=== PATIENT | male | born 1965 | race Caucasian/White ===

== ENCOUNTER 2016-10-05 14:02 | Emergency (ER) | payer MEDICARE ==
[~2016-10-05] VITALS: Ht 180.3 cm; Wt 85.0 kg
[~2016-10-05 14:02] MED LIST: LISI-586 PO; PREG100; TRAZ100 PO; VENL100T PO; XANA1TAB6 PO
[2016-10-05 14:04] VITALS: BP 160/88; PULSE 122; RESP 20; TEMP 98.6; O2SAT 99
[2016-10-05] MEDS ORDERED: SODIUM CHLOR 0.9% 1000 ML INJ 1,000 ML IV ONE (14:30)
[2016-10-05] MEDS ORDERED: HYDROmorphone HCL PF 1 MG/ML VIAL IV PUSH ONE (14:30)
[2016-10-05] MEDS ORDERED: ONDANSETRON HCL 4 MG/2 ML VIAL IV PUSH ONE (14:30)
--- NOTE | 2016-10-05 14:43 | PD ---
HPI Chief Complaint: Injury Time Seen by Provider: 14:30 Travel History International Travel<30 days: No Contact w/Intl Traveler<30days: No Traveled to known affect area: No History of Present Illness HPI The patient is a 51-year-old male who presents to the emergency department via EMS for right shoulder pain. The patient states he fell against a wall last night and injured his right shoulder. The patient thought it was simply bruised him at the bed, however, when he awakened this morning he was unable to raise his right arm. Patient states she has difficulty moving the right upper extremity secondary to pain located over the mid to proximal right humerus as well as bruising over the affected area. He also states the pain radiates up to the right clavicle. He denies any head injury, acute headache, neck pain, chest pain, shortness breath, or abdominal pain. The patient's pain is moderate, worse with movement, slightly alleviated at rest. The patient received 10 mg of morphine by EMS prior to arrival, however, continues to complain of right arm pain. He denies any numbness or tingling of the right upper extremity. PFSH Past Medical History Anemia: Yes Anxiety: Yes Depression: Yes Diminished Hearing: No Hypertension: Yes Seizures: Yes Tetanus Vaccination: Unknown Past Surgical History Genitourinary Surgery: Yes (LT KIDNEY CA REMOVED) Other Surgery: Yes (FACIAL ABCESS) Social History Alcohol Use: Yes (6 PACK PER DAY (DENIES)) Tobacco Use: Yes (1 PPD) Substance Use: No Allergies-Medications (Allergen,Severity, Reaction): Coded Allergies: No Known Allergies (Unverified , 10/05/16) Reported Meds & Prescriptions Reported Meds & Active Scripts Active No Active Prescriptions or Reported Medications Review of Systems Except as stated in HPI: all other systems reviewed are Neg General / Constitutional: No: Fever Cardiovascular: No: Chest Pain or Discomfort Respiratory: No: Shortness of Breath Gastrointestinal: Positive: Other (history of chronic left flank pain after removal of renal cell carcinoma with subsequent hernia), No: Nausea, Vomiting Musculoskeletal: Positive: Limited ROM, Edema, Pain Neurologic: No: Paresthesia, Sensory Disturbance Physical Exam Narrative GENERAL: Awake, alert, pleasant 51-year-old male who appears his stated age and is in no acute respiratory distress. SKIN: Warm and dry. HEAD: Atraumatic. Normocephalic. EYES: No injection or drainage. ENT: No nasal bleeding or discharge. Mucous membranes pink and moist. NECK: Trachea midline. No JVD. CARDIOVASCULAR: Regular rate and rhythm. No murmur appreciated. RESPIRATORY: No accessory muscle use. Clear to auscultation. Breath sounds equal bilaterally. MUSCULOSKELETAL: Tenderness over the mid to proximal right humerus with apparent deformity. Ecchymosis noted over the medial aspect of the right biceps. Patient is unable to abduct or extend at the right shoulder. He is unable to extend at the right elbow secondary to pain. He is able flex and extend the right wrist. Positive right radial pulse. No tenderness of the right clavicle. NEUROLOGICAL: Awake and alert. No obvious cranial nerve deficits. Motor grossly within normal limits. Normal speech. PSYCHIATRIC: Appropriate mood and affect; insight and judgment normal. Data Data Last Documented VS Vital Signs Date Time Temp Pulse Resp B/P Pulse Ox O2 Delivery O2 Flow Rate FiO2 10/05/16 15:41 99 16 182/94 95 Room Air 10/05/16 14:04 98.6 Orders Humerus (Min 2vws) (10/05/16 ) Sodium Chlor 0.9% 1000 Ml Inj (Ns 1000 M (10/05/16 14:30) Hydromorphone Pf Inj (Dilaudid Pf Inj) (10/05/16 14:30) Ondansetron Inj (Zofran Inj) (10/05/16 14:30) Propofol 200 Mg/20 Ml Inj (Diprivan 200 (10/05/16 16:00) Shoulder, One View (10/05/16 ) Sling And Swathe (10/05/16 ) MDM Medical Decision Making Medical Screen Exam Complete: Yes Emergency Medical Condition: Yes Medical Record Reviewed: Yes Interpretation(s) X-ray of the humerus reveals an anterior/inferior dislocation of the shoulder with the humerus Below the glenoid with a large triangular shaped fracture of the humeral head. Postreduction x-ray reveals reduction of the dislocation. Differential Diagnosis Differential diagnosis includes fracture, dislocation, fracture with dislocation , contusion, hematoma, neurovascular injury. Narrative Course IV was established, the patient was administered Dilaudid 1 mg intravenously with Zofran 4 mg intravenously and normal saline. X-ray of the right humerus was obtained. X-ray the right humerus reveals a dislocation and fracture of the humeral head. I discussed the patient with the on-call orthopedist, Dr. Raman, who reviewed the patient's films. He requests reduction of the shoulder dislocation of possible, swelling, and outpatient follow-up. Discussion with the patient at bedside regarding the risk and benefits of conscious sedation. The patient is agreeable to conscious sedation. Therefore , nursing staff, respiratory therapist, and the heat treat technician were present at bedside. The patient was placed on end-tidal CO2 and administer propofol with IV fluids. The right shoulder was then reduced and postreduction x-ray was obtained. The patient was neurovascularly intact after reduction. The patient be discharged home with a sling and follow-up with orthopedics. Procedures Procedure Narrative After the risks and benefits were discussed the following procedure was performed: MODERATE SEDATION: The patient was placed on a carbonation tester and pulse oximetry. An ambu bag and suction was immediately available at bedside. The patient was monitored by the nurse. Oxygen saturation, heart rate and blood pressure were monitored. Procedural sedation was acheived using 300 mg of propofol. The patient was observed until awake and alert. Procedural Sedation time in attendance was 30 minutes. The right shoulder was reduced after adequate sedation with extension and external rotation. The patient had positive pulses after reduction. The patient was placed in a sling and postreduction films revealed proper reduction. The patient is neurovascularly intact. Patient tolerated the procedure without difficulty and there was no obvious complications. Diagnosis Primary Impression: Closed fracture dislocation of right shoulder joint Qualified Code: S42.91XA - Closed fracture dislocation of right shoulder joint , initial encounter Referrals: Alejandro Raman Jr., MD call for appointment Patient Instructions: General Instructions Additional Instructions: Sling as directed. Follow-up with orthopedics. Pain medication as directed. Return if symptoms worsen or progress. Med/Other Pt SpecificInfo: Prescription(s) given Scripts Ibuprofen 600 Mg Mlb362 Mg PO Q6H PRN (Pain/Inflammation) #20 TAB Ref 0 Prov:Jerrell Blandon MD 10/05/16 Hydrocodone-Acetaminophen (Vincent)5-325 mg Tab1 Tab PO Q6H PRN (PAIN) #20 TAB Ref 0 Prov:Jerrell Blandon MD 10/05/16 Disposition: DISCHARGE HOME Condition: Stable Jerrell Blandon MD Oct 05, 2016 14:43
--- NOTE | 2016-10-05 15:33 | RADRPT ---
EXAM DATE/TIME: 10/05/2016 15:20 [facility] COMPARISON: No previous studies available for comparison. INDICATIONS : Fall. Right proximal humerus pain and deformity. MEDICAL HISTORY : None. SURGICAL HISTORY : None. ENCOUNTER: Initial ACUITY: 1 day PAIN SCORE: 10/10 LOCATION: Right proximal humerus FINDINGS: There is an anterior/inferior dislocation of the shoulder with the humerus trapped below the glenoid with a large triangular shaped fracture of the humeral head. CONCLUSION: Fracture dislocation as described above. Humeral head is trapped beneath the glenoid . Ion Clement MD FACR on October 05, 2016 at 15:30 Board Certified Radiologist. This report was verified electronically.
[2016-10-05 15:41] VITALS: BP 182/94; PULSE 99; RESP 16; O2SAT 95
[2016-10-05] MEDS ORDERED: PROPOFOL 200 MG/20 ML AMP IV ONE (16:00)
[2016-10-05] MEDS ORDERED: IBUP-232 PO (16:57)
[2016-10-05] MEDS ORDERED: NORC5TAB PO (16:57)
[2016-10-05 18:00] VITALS: O2SAT 100
--- NOTE | 2016-10-06 09:29 | RADRPT ---
EXAM DATE/TIME: 10/05/2016 16:53 [facility] COMPARISON: HUMERUS RIGHT (MIN 2VWS), October 05, 2016, 15:20. INDICATIONS: Post reduction right shoulder. MEDICAL HISTORY: None. SURGICAL HISTORY: None. ENCOUNTER: Initial ACUITY: 1 day PAIN SCORE: 4/10 LOCATION: Right shoulder FINDINGS: Two view of the right shoulder demonstrates the glenohumeral joint is now reduced. I suspect there i s still a greater tuberosity fracture. On one view there is even a small questionable [place] fractu re. Acromioclavicular joint is unremarkable and scapula is unremarkable. CONCLUSION: The glenohumeral joint is now reduced with questionable fracture involving the greater tuberosity and the anterior inferior glenoid. Cameron Silva MD on October 05, 2016 at 17:16 Board Certified Radiologist. This report was verified electronically.
== END 2016-10-05 18:07 | disposition home or self-care (01) ==
LOC: NEPE 14:02
DX: S42.201A Unspecified fracture of upper end of right humerus, initial encounter for closed fracture (principal); S43.004A Unspecified dislocation of right shoulder joint, initial encounter; W19.XXXA Unspecified fall, initial encounter
CPT/HCPCS: 23665; 73020; 73060; 96361; 96374; 96375; 99152; 99153; 99283; J1170; J2405; J7030

== ENCOUNTER 2016-10-11 02:49 | Emergency (ER) | payer OTHER, MEDICARE ==
[~2016-10-11] VITALS: Ht 180.3 cm; Wt 89.9 kg
[~2016-10-11 02:49] MED LIST changes: +IBUP-232 PO; -LISI-586 PO; +NORC5TAB PO; -PREG100; -TRAZ100 PO; -VENL100T PO; -XANA1TAB6 PO
[2016-10-11 03:05] VITALS: BP 128/87; PULSE 87; RESP 16; TEMP 98.5; O2SAT 98
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
[2016-10-11 05:05] VITALS: BP 142/78; PULSE 74; RESP 16; O2SAT 100
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
== END 2016-10-11 05:25 | disposition home or self-care (01) ==
LOC: PHED 02:49
DX: S42.201A Unspecified fracture of upper end of right humerus, initial encounter for closed fracture (principal); I10 Essential (primary) hypertension; V09.9XXA Pedestrian injured in unspecified transport accident, initial encounter; Y92.511 Restaurant or cafe as the place of occurrence of the external cause; F17.210 Nicotine dependence, cigarettes, uncomplicated
CPT/HCPCS: 73030; 99283

== ENCOUNTER 2016-10-15 10:42 | Emergency (ER) | payer MEDICARE, OTHER ==
[~2016-10-15] VITALS: Ht 180.3 cm; Wt 90.0 kg
[2016-10-15 10:46] VITALS: BP 136/83; PULSE 88; RESP 16; TEMP 98.1; O2SAT 94
--- NOTE | 2016-10-15 11:04 | PD ---
HPI Chief Complaint: Injury Time Seen by Provider: 10:55 Travel History International Travel<30 days: No Contact w/Intl Traveler<30days: No Traveled to known affect area: No History of Present Illness HPI Physical 51-year-old male presents for evaluation of right shoulder pain. Review of records shows the patient was seen in October 05 of this year for fracture dislocation of his proximal humerus. Patient was reduced in the emergency department place in sling and instructed to follow-up with orthopedic surgery. Patient has not been wearing his sling and has not followed up with orthopedic surgery since then. He is also return to the emergency department once for increasing pain. Today he was placed under arrest and was handcuffed at which point he started having shoulder pain stating he was in severe pain. On arrival to the emergency department he appears well in no apparent distress. He is under arrest and escorted by lawyer. His only complaint is right shoulder pain. According the officer there was no takedown he was surrendered and handcuffed without significant trauma to his person. Patient allegedly under arrest for resisting arrest. [facility] Past Medical History Anemia: Yes Anxiety: Yes Depression: Yes Diminished Hearing: No Hypertension: Yes Seizures: Yes Past Surgical History Genitourinary Surgery: Yes (LT KIDNEY CA REMOVED) Other Surgery: Yes (FACIAL ABCESS) Social History Alcohol Use: Yes (DAILY) Tobacco Use: Yes (1 PPD) Substance Use: No Allergies-Medications (Allergen,Severity, Reaction): Coded Allergies: No Known Allergies (Unverified , 10/15/16) Reported Meds & Prescriptions Reported Meds & Active Scripts Active No Active Prescriptions or Reported Medications Review of Systems Except as stated in HPI: all other systems reviewed are Neg Physical Exam Narrative GENERAL: Well-nourished, well-developed patient. Smells of alcohol. SKIN: Warm and dry. HEAD: Normocephalic. EYES: No scleral icterus. No injection or drainage. NECK: Supple, trachea midline. No JVD or lymphadenopathy. CARDIOVASCULAR: Regular rate and rhythm without murmurs, gallops, or rubs. RESPIRATORY: Breath sounds equal bilaterally. No accessory muscle use. GASTROINTESTINAL: Abdomen soft, non-tender, nondistended. MUSCULOSKELETAL: No cyanosis, or edema. Right upper extremity: There is some swelling and bruising about the right shoulder over the proximal humerus. There is some ecchymosis which is started to spread inferiorly. There is no tenderness in the elbow wrist or hand. Pulses motor and sensory intact distally. Compartments are soft. Left upper extremity: No tenderness at the shoulder elbow wrist or hand. Pulses motor and sensory intact distally. BACK: Nontender without obvious deformity. No CVA tenderness. Data Data Last Documented VS Vital Signs Date Time Temp Pulse Resp B/P Pulse Ox O2 Delivery O2 Flow Rate FiO2 10/15/16 12:01 16 10/15/16 10:58 97 Room Air 10/15/16 10:46 98.1 88 136/83 Orders Acetaminophen (Tylenol) (10/15/16 11:15) Shoulder, Limited(2vws) (10/15/16 ) Oxycodone-Acetamin 5-325 Mg (Percocet (10/15/16 11:30) Support Splint (10/15/16 11:30) Sling And Swathe (10/15/16 ) MDM Medical Decision Making Medical Screen Exam Complete: Yes Emergency Medical Condition: Yes Differential Diagnosis Shoulder pain, shoulder fracture, shoulder dislocation unlikely, Narrative Course Patient was roomed in emergency department, has mild swelling over his proximal humerus on the right. He is fairly belligerent but ultimately cooperative. He was reported to have Tylenol and refused Tylenol and refused to go to x-ray until he was given something for pain. He appears well in no apparent pain. He was given a Percocet 5 and had x-ray which showed unchanged fracture of his right humerus: Last 24 hours Impressions Shoulder X-Ray 10/15/16 0000 Signed Impressions: Service Date/Time: October 11:17 - CONCLUSION: 1. Stable appearance of proximal humeral fracture compared with October 11. No dislocation. Fredrick Manning MD Patient will be replaced in the sling and swath. He is stable to go to halfway this time. He has not had any complaints of chest pain abdominal pain nausea vomiting headache. He appears atraumatic except for his right upper extremity which is bruised likely secondary to a previous fracture. Discussed with her need for follow-up with an orthopedic surgeon on his release from halfway. Diagnosis Primary Impression: Shoulder pain, right Qualified Code: M25.511 - Acute pain of right shoulder Additional Impression: Closed fracture dislocation of right shoulder joint Referrals: Alejandro Raman Jr., MD Scripts No Active Prescriptions or Reported Meds Disposition: 01 DISCHARGE HOME (ERASED) Condition: Stable Williams Cortez MD Oct 15, 2016 11:04
[2016-10-15] MEDS: ACETAMINOPHEN 325 MG TAB PO ONE ×2 (11:08→11:14)
[2016-10-15] MEDS ORDERED: oxyCODONE/ACETAMINOPHEN 5 MG/325 MG TAB PO ONE (11:30)
--- NOTE | 2016-10-15 11:36 | RADHPO ---
EXAM DATE/TIME: 10/15/2016 11:17 [facility] COMPARISON: SHOULDER RIGHT LTD (2VWS), October 11, 2016, 4:52. INDICATIONS : Right shoulder fractured last week, continued pain and patient states he has injured his right shoul tejas twice more since he fractured it. MEDICAL HISTORY : right humeral head fracture SURGICAL HISTORY : None. ENCOUNTER: Subsequent ACUITY: 1 week PAIN SCORE: 10/10 LOCATION: Right shoulder FINDINGS: There is a fracture of the proximal humerus with avulsion of the greater tuberosity. No change in dis placement since October 11. No dislocation. No new fractures. CONCLUSION: 1. Stable appearance of proximal humeral fracture compared with October 11. No dislocation. Fredrick Manning MD on October 15, 2016 at 11:32 Board Certified Radiologist. This report was verified electronically.
[2016-10-15 12:01] VITALS: RESP 16
== END 2016-10-15 12:02 | disposition home or self-care (01) ==
LOC: PHED 10:42
DX: M25.511 Pain in right shoulder (principal); S42.201D Unspecified fracture of upper end of right humerus, subsequent encounter for fracture with routine healing; I10 Essential (primary) hypertension; F17.200 Nicotine dependence, unspecified, uncomplicated; Z86.2 Personal history of diseases of the blood and blood-forming organs and certain disorders involving the immune mechanism; Z86.59 Personal history of other mental and behavioral disorders; Z86.69 Personal history of other diseases of the nervous system and sense organs; X58.XXXD Exposure to other specified factors, subsequent encounter
CPT/HCPCS: 29240; 73030

== ENCOUNTER 2016-10-19 15:57 | Emergency (ER) | payer MEDICARE, OTHER ==
[~2016-10-19] VITALS: Ht 177.8 cm; Wt 88.5 kg
[2016-10-19 15:59] VITALS: BP 153/82; PULSE 100; RESP 16; TEMP 98.2; O2SAT 97
[2016-10-19 18:16] VITALS: BP 148/77; PULSE 91; RESP 20; O2SAT 99
[2016-10-19] MEDS ORDERED: XANA2TAB2 PO (18:18)
[2016-10-19] MEDS ORDERED: SODIUM CHLORIDE 0.9% FLUSH 5 ML FLUSH IVF PRN (18:30)
[2016-10-19 19:03] LABS: AUTOMATED NEUTROPHIL # 5.5 TH/MM3 (1.8-7.7); BASOPHIL # 0.1 TH/MM3 (0-0.2); BASOPHIL % 1.3 % (0.0-2.0); EOSINOPHIL # 0.3 TH/MM3 (0-0.4); EOSINOPHIL % 3.3 % (0.0-4.0); HEMATOCRIT 33.8 % (39.0-51.0); LYMPH % 15.2 % (9.0-44.0); LYMPHOCYTE # 1.2 TH/MM3 (1.0-4.8); MEAN CELL VOLUME 67.9 FL (80.0-100.0); MEAN CORPUSCULAR HEMOGLOBIN 22.2 PG (27.0-34.0); MEAN CORPUSCULAR HGB CONC 32.7 % (32.0-36.0); MONO % 9.3 % (0.0-8.0); NEUT % 70.9 % (16.0-70.0); PLATELET COUNT 349 TH/MM3 (150-450); RED BLOOD COUNT 4.99 MIL/MM3 (4.50-5.90); RED CELL DISTRIBUTION WIDTH 16.6 % (11.6-17.2); WHITE BLOOD COUNT 7.8 TH/MM3 (4.0-11.0)
[2016-10-19 19:04] VITALS: RESP 20; O2SAT 98
[2016-10-19 19:07] LABS: HEMO FLAGS AUTO DIFF
[2016-10-19] MEDS ORDERED: SODIUM CHLOR 0.9% 1000 ML INJ 1,000 ML IV SCH (19:19)
[2016-10-19 19:20] LABS: APTT (PATIENT) 27.5 SEC (24.3-30.1); PROTHROMBIN TIME - PATIENT 10.7 SEC (9.8-11.6)
[2016-10-19] MEDS ORDERED: HYDROmorphone HCL PF 1 MG/ML VIAL IVS ONE (19:30)
[2016-10-19 19:39] LABS: ANION GAP 6 MEQ/L (5-15); AST (GOT) 18 U/L (15-37); BICARBONATE 30.7 MEQ/L (21.0-32.0); BLOOD UREA NITROGEN 12 MG/DL (7-18); CHLORIDE 102 MEQ/L (98-107); GLOMERULAR FILTRATION RATE 52 ML/MIN (>89); POTASSIUM 4.1 MEQ/L (3.5-5.1); SODIUM (NA) 139 MEQ/L (136-145)
[2016-10-19 19:42] LABS: ALKALINE PHOSPHATASE 61 U/L (45-117); ALT (GPT) 13 U/L (12-78); TOTAL BILIRUBIN ADULT 0.6 MG/DL (0.2-1.0)
--- NOTE | 2016-10-19 19:49 | PD ---
HPI Chief Complaint: Flank/Kidney Pain Time Seen by Provider: 19:04 Travel History International Travel<30 days: No Contact w/Intl Traveler<30days: No Traveled to known affect area: No History of Present Illness HPI The patient's 51 years old. He arrives here directly from Dr. Askew's office. Patient states "I've a few issues." He notes right shoulder pain following a fracture from a few weeks ago. He has yet to follow up with orthopedics. He has not been wearing his sling. The patient reports renal cell carcinoma with a left nephrectomy in April 2015. He arrives to the ER due to increased swelling and pain about the region of the left flank over the past couple months with accelerated swelling and pain now with warmth for the past few days. A CT scan from 6 months prior reveals extensive metastatic disease throughout the left abdomen concerning for recurrence of renal cell carcinoma. Reportedly the swelling the region of the left flank was diagnosed a hernia and hence ignored until today when it was discovered by Dr Askew who sent the patient directly to ER for evaluation. The patient reports rhinorrhea and cough for the past few days. He's had no fever nausea or vomiting. He reports he is quite hungry at the conclusion of the interview. PFSH Past Medical History Anemia: Yes Anxiety: Yes Depression: Yes Cancer: Yes Diminished Hearing: No Hypertension: Yes Medical other: Yes (states having ? hernia to left abdominal area for a while, told hernia) Musculoskeletal: Yes (dislocated r shoulder-states sling/swathe fell off) Seizures: Yes Past Surgical History Genitourinary Surgery: Yes (LT KIDNEY CA REMOVED) Other Surgery: Yes (FACIAL ABCESS) Social History Alcohol Use: Yes Tobacco Use: Yes (1 PPD) Substance Use: No (denies use) Allergies-Medications (Allergen,Severity, Reaction): Coded Allergies: No Known Allergies (Unverified , 10/19/16) Reported Meds & Prescriptions Reported Meds & Active Scripts Active Percocet (Oxycodone-Acetaminophen) 7.5-325 mg Tab 1 Tab PO Q6H PRN Ibuprofen 600 Mg Tab 600 Mg PO Q6H PRN 7 Days Reported Xanax (Alprazolam) 2 Mg Tab 2 Mg PO Q8H PRN Review of Systems Except as stated in HPI: all other systems reviewed are Neg General / Constitutional: No: Fever, Chills Physical Exam Narrative GENERAL: 51-year-old male well-nourished well-developed no obvious distress SKIN: Warm and dry. Diffuse erythematous lesions involving the thorax abdomen and extremities. Evidently this was diagnosed as scabies by outside provider. HEAD: Atraumatic. Normocephalic. EYES: Pupils equal and round. No scleral icterus. No injection or drainage. ENT: No nasal bleeding or discharge. Mucous membranes pink and moist. NECK: Trachea midline. No JVD. CARDIOVASCULAR: Regular rate and rhythm. RESPIRATORY: No accessory muscle use. Clear to auscultation. Breath sounds equal bilaterally. GASTROINTESTINAL: The region of the left flank there is a lobulated. Minimally tender and mobile somewhat firm mass approximately 20 cm x 15 cm in size. There is no fluctuance or erythema. MUSCULOSKELETAL: Minimal deformity about the right humerus some tenderness to palpation diffusely. Radial artery pulses 2+ bilaterally. No sling with patient on the right upper extremity NEUROLOGICAL: Awake and alert. No obvious cranial nerve deficits. Motor grossly within normal limits. Five out of 5 muscle strength in the arms and legs. Normal speech. PSYCHIATRIC: Appropriate mood and affect; insight and judgment normal. Data Data Last Documented VS Vital Signs Date Time Temp Pulse Resp B/P Pulse Ox O2 Delivery O2 Flow Rate FiO2 10/19/16 19:04 20 98 Room Air 10/19/16 18:16 91 148/77 10/19/16 15:59 98.2 VS reviewed Orders Complete Blood Count With Diff (10/19/16 18:18) Comprehensive Metabolic Panel (10/19/16 18:18) Lipase (10/19/16 18:18) Lactic Acid (10/19/16 18:18) Prothrombin Time / Inr (Pt) (10/19/16 18:18) Act Partial Throm Time (Ptt) (10/19/16 18:18) Iv Access Insert/Monitor (10/19/16 18:18) Ecg Monitoring (10/19/16 18:18) Oximetry (10/19/16 18:18) Sodium Chloride 0.9% Flush (Ns Flush) (10/19/16 18:30) Electrocardiogram (10/19/16 18:18) Ct Abd/Pel W Iv Contrast(Rout) (10/19/16 19:19) Sodium Chlor 0.9% 1000 Ml Inj (Ns 1000 M (10/19/16 19:19) Hydromorphone Pf Inj (Dilaudid Pf Inj) (10/19/16 19:30) ^ Sling (10/19/16 20:22) Diphenhydramine Inj (Benadryl Inj) (10/19/16 20:45) Iodixanol 320 Inj (Rad Ct) (Visipaque 32 (10/19/16 22:19) Oxycodone-Acetamin 5-325 Mg (Percocet (10/19/16 23:00) Labs Laboratory Tests Test 10/19/16 18:50 White Blood Count 7.8 TH/MM3 Red Blood Count 4.99 MIL/MM3 Hemoglobin 11.1 GM/DL Hematocrit 33.8 % Mean Corpuscular Volume 67.9 FL Mean Corpuscular Hemoglobin 22.2 PG Mean Corpuscular Hemoglobin 32.7 % Concent Red Cell Distribution Width 16.6 % Platelet Count 349 TH/MM3 Mean Platelet Volume 7.5 FL Neutrophils (%) (Auto) 70.9 % Lymphocytes (%) (Auto) 15.2 % Monocytes (%) (Auto) 9.3 % Eosinophils (%) (Auto) 3.3 % Basophils (%) (Auto) 1.3 % Neutrophils # (Auto) 5.5 TH/MM3 Lymphocytes # (Auto) 1.2 TH/MM3 Monocytes # (Auto) 0.7 TH/MM3 Eosinophils # (Auto) 0.3 TH/MM3 Basophils # (Auto) 0.1 TH/MM3 CBC Comment AUTO DIFF Differential Comment AUTO DIFF CONFIRMED Platelet Estimate NORMAL Platelet Morphology Comment NORMAL Basophilic Stippling FAINT Prothrombin Time 10.7 SEC Prothromb Time International 1.0 RATIO Ratio Activated Partial 27.5 SEC Thromboplast Time Sodium Level 139 MEQ/L Potassium Level 4.1 MEQ/L Chloride Level 102 MEQ/L Carbon Dioxide Level 30.7 MEQ/L Anion Gap 6 MEQ/L Blood Urea Nitrogen 12 MG/DL Creatinine 1.43 MG/DL Estimat Glomerular Filtration 52 ML/MIN Rate Random Glucose 101 MG/DL Lactic Acid Level 1.2 mmol/L Calcium Level 8.1 MG/DL Total Bilirubin 0.6 MG/DL Aspartate Amino Transf 18 U/L (AST/SGOT) Alanine Aminotransferase 13 U/L (ALT/SGPT) Alkaline Phosphatase 61 U/L Total Protein 6.8 GM/DL Albumin 3.5 GM/DL Lipase 165 U/L MDM Medical Decision Making Medical Screen Exam Complete: Yes Emergency Medical Condition: Yes Medical Record Reviewed: Yes Differential Diagnosis Recurrent neoplastic disease, abscess, renal injury, infection, chronic pain Narrative Course CBC & BMP Diagram 10/19/16 18:50 LA 1.2 LFTs normal Lipase 165 INR 1.0 Patient was discussed with Dr. Hackett, Dr. Lowery's partner, of hematology oncology. The patient has had multiple missed appointments. A contact letter was sent to the patient in may 2016, about 5 months ago. the patient had known stage iii renal cell carcinoma status post nephrectomy as well as a 1 cm lung nodule. PET ct at that time was negative. The desktop specialist we'll notify Dr. Lowery of the patient's left renal mass and an appointment will be scheduled most expeditiously. Assistance by Dr. Hackett appreciated. Outpatient follow-up/workup is considered reasonable. PET scan and/or biopsy will be necessary. The case was discussed with Dr. Henderson, urologist covering for Dr Morris, who notes patient most probably has suffered a large local recurrence. Dr. Morris will be notified. The patient will be scheduled for follow-up expeditiously. Workup today reveals no acute abnormality that necessitates inpatient management. The patient notes having suffered with this mass for months. CT reveals as expected local recurrence without impingement upon adjacent organs or acute process otherwise. The strict necessity of prompt follow-up was discussed with the patient. His mother was present during the conversation. The patient is well aware that he has cancer and prognosis is dependent upon prompt follow-up and compliance with doctor's recommendations. We'll control his pain aggressively and as he has reiterated that concern a few times. He has also asked for food and coffee a few times here. He has verbalized agreement with plan and the mother has as well. RUE sling applied here. Diagnosis Primary Impression: Left flank mass Additional Impressions: Right shoulder pain Qualified Code: M25.511 - Chronic right shoulder pain Rash Hunger Qualified Code: T73.0XXA - Hunger, initial encounter Metastatic disease Referrals: CALL DR LOWERY [address] MORRIS 1 day Additional Instructions: You have a choice when it comes to health care, and we are glad that you chose [facility]. Hopefully, we have met your expectations on today's visit. You are welcome to return to [facility] at any time, as we are committed to meeting the health care needs of our community. Med/Other Pt SpecificInfo: Prescription(s) given Scripts Oxycodone-Acetaminophen (Percocet)7.5-325 mg Tab1 Tab PO Q6H PRN (PAIN SCALE 6 TO 10) #20 TAB Ref 0 Prov:Alex Dewitt MD 10/19/16 Ibuprofen 600 Mg [id number] Mg PO Q6H PRN (Pain/Inflammation) 7 Days Ref 0 Prov:Alex Dewitt MD 10/19/16 Disposition: 01 DISCHARGE HOME Condition: Stable Alex Dewitt MD Oct 19, 2016 19:49
[2016-10-19 19:52] LABS: PLATELET ESTIMATE SMEAR NORMAL (NORMAL); PLATELET MORPHOLOGY NORMAL (NORMAL); SCAN/DIFF AUTO DIFF CONFIRMED
[2016-10-19] MEDS ORDERED: diphenhydrAMINE HCL 50 MG/ML VIAL IV PUSH ONE (20:45)
[2016-10-19] MEDS ORDERED: PERC7.5T13 PO (21:55)
[2016-10-19] MEDS ORDERED: IBUP-232 PO (21:55)
[2016-10-19] MEDS ORDERED: IODIXANOL 320 MG/ML 10 ML VIAL (for Rad CT) IV ONE (22:19)
--- NOTE | 2016-10-19 22:23 | RADRPT ---
EXAM DATE/TIME: 10/19/2016 21:22 [facility] COMPARISON: No previous studies available for comparison. INDICATIONS : Left flank pain and mass following left nephrectomy for renal cancer. IV CONTRAST: 46 cc Visipaque (iodixanol) IV ORAL CONTRAST: No oral contrast ingested. RADIATION DOSE: 11.16 CTDIvol (mGy) MEDICAL HISTORY : Carcinoma, renal. SURGICAL HISTORY : Nephrectomy, left. ENCOUNTER: Initial ACUITY: 2 months PAIN SCALE: 6/10 LOCATION: Left flank TECHNIQUE: Volumetric scanning of the abdomen and pelvis was performed. Using automated exposure control and ad justment of the mA and/or kV according to patient size, radiation dose was kept as low as reasonably achievable to obtain optimal diagnostic quality images. FINDINGS: LOWER LUNGS: Multiple pulmonary nodules. Suspect lung metastatic disease. LIVER: Homogeneous density without lesion. There is no dilation of the biliary tree. Small stone in the gal lbladder. SPLEEN: Normal size without lesion. PANCREAS: Within normal limits. KIDNEYS: Status post left nephrectomy. Large soft tissue mass is now present in the left renal fossa measuring 8.0 x 4.4 cm characteristic recurrent disease. 7.1 cm with large soft tissue mass in the left flank and system with metastatic disease to the body wall. Smaller soft tissue masses are also noted in thi s location. The right kidney is within normal limits. There is no hydronephrosis of the right kidney. ADRENAL GLANDS: Within normal limits. VASCULAR: There is no aortic aneurysm. BOWEL/MESENTERY: Multiple prominent mesenteric masses are seen throughout the abdomen. The largest mass measures 11.2 cm in the midabdomen at the level of the umbilicus. Multiple smaller masses are also seen throughout the abdomen and pelvis. The bowel gas pattern is within normal limits. There is no evidence of obstru ction. There is stool in the colon. ABDOMINAL WALL: Multiple soft tissue masses along the left flank in the body wall. This is metastatic disease. RETROPERITONEUM: There is some left-sided retroperitoneal adenopathy. BLADDER: No wall thickening or mass. REPRODUCTIVE: Within normal limits. INGUINAL: Bilateral inguinal adenopathy. MUSCULOSKELETAL: Within normal limits for patient age. CONCLUSION: 1. Bilateral lung metastatic disease. 2. Diffuse mesenteric masses throughout the abdomen and pelvis characteristic of metastatic disease. 3. Multiple soft tissue masses in the left flank characteristic of metastatic disease to the soft tis sues. 4. Large soft tissue mass in the left renal fossa characteristic of recurrent disease. 5. Left-sided retroperitoneal adenopathy. 6. Bilateral inguinal adenopathy. Afshin Alvarez MD on October 19, 2016 at 22:14 Board Certified Radiologist. This report was verified electronically.
[2016-10-19] MEDS ORDERED: oxyCODONE/ACETAMINOPHEN 5 MG/325 MG TAB PO ONE (23:00)
--- NOTE | 2016-10-21 07:38 | EKG ---
Date Performed: 10/19/2016 Time Performed: 18:43:36 PTAGE: 51 years EKG: Sinus rhythm SEPTAL MYOCARDIAL INFARCTION Compared to the previous tracing R wave progression is slightly worse, likely due to lead placement differences ABNORMAL ECG PREVIOUS TRACING : 02/04/15 DOCTOR: Carlos Gonzales Interpretating Date/Time 10/21/2016 07:38:01
== END 2016-10-20 00:05 | disposition home or self-care (01) ==
LOC: NEPC 15:57
DX: R22.2 Localized swelling, mass and lump, trunk (principal); M25.511 Pain in right shoulder; R21 Rash and other nonspecific skin eruption; C79.02 Secondary malignant neoplasm of left kidney and renal pelvis; R63.8 Other symptoms and signs concerning food and fluid intake; R94.31 Abnormal electrocardiogram [ECG] [EKG]; I10 Essential (primary) hypertension; F17.200 Nicotine dependence, unspecified, uncomplicated; Z85.528 Personal history of other malignant neoplasm of kidney; Z86.2 Personal history of diseases of the blood and blood-forming organs and certain disorders involving the immune mechanism; Z86.59 Personal history of other mental and behavioral disorders; Z87.39 Personal history of other diseases of the musculoskeletal system and connective tissue; Z86.69 Personal history of other diseases of the nervous system and sense organs
CPT/HCPCS: 74177; 80053; 83605; 83690; 85025; 85610; 85730; 93005; 96361; 96374; 96375; 99284; J1170; J1200; J7030; Q9967